=== PATIENT | male | born 1940 | race African-American/Black ===

== ENCOUNTER 2022-01-31 11:44 | Emergency (ER) | payer OTHER ==
[~2022-01-31] VITALS: Ht 182.9 cm; Wt 91.0 kg
[2022-01-31 12:47] LABS: INR 1.1; PROTHROMBIN TIME 11.4 sec (9.6-11.0)
[2022-01-31] MEDS ORDERED: ACETAMINOPHEN 325MG TABLET PO ONE ×2 (13:00→15:00)
[2022-01-31] MEDS ORDERED: SODIUM CHLORIDE 0.9% 500 ML IV ONE (13:00)
[2022-01-31 13:01] LABS: CHLORIDE 107 mEq/L (98-107)
[2022-01-31] MEDS ORDERED: VANCOMYCIN 1G PREMIX 200 ML IV ONE ×2 (13:30→15:00)
[2022-01-31] MEDS ORDERED: PIPERACILLIN/TAZ 3.375G PREMIX 50 ML IV ONE ×2 (13:30→15:00)
[2022-01-31 15:47] LABS: HEMATOCRIT. 34.6 % (42.0-52.0); HEMOGLOBIN. 11.9 g/dL (14.0-18.0); MEAN CORPUSCULAR HEMOGLOBIN 30.8 pg (28.0-32.0); MEAN CORPUSCULAR VOLUME 89.3 fL (80.0-94.0); MEAN PLATELET VOLUME 9.5 fl (7.4-10.4); PLATELET 94 x1000/uL (130-400); RED BLOOD CELL COUNT 3.88 mill/uL (4.7-6.1); RED CELL DISTRIBUTION WIDTH 13.5 % (11.6-14.6)
[2022-01-31 17:32] LABS: CLARITY URINE CLOUDY (CLEAR); COLOR URINE DARK YELLOW (YELLOW); KETONES URINE TRACE (NEGATIVE); LEUKOCYTE ESTERASE URINE TRACE (NEGATIVE); NITRITE URINE NEGATIVE (NEGATIVE); OCCULT BLOOD URINE NEGATIVE (NEGATIVE); PROTEIN URINE 2+ (NEGATIVE); SPECIFIC GRAVITY URINE 1.023 (1.005-1.030)
[2022-01-31 17:36] LABS: PLATELET ESTIMATE DECREASED
[2022-01-31] MEDS ORDERED: SODIUM CHLORIDE 0.9% 1,000 ML IV ONE (18:00)
[2022-01-31 21:16] VITALS: BP 115/68
== END 2022-01-31 21:15 | disposition short-term general hospital (02) ==
LOC: EDBEDREQ 11:57 → ER 12:40 → CANBEDREQ 02-01 08:08
DX: A41.9 Sepsis, unspecified organism (principal); R65.20 Severe sepsis without septic shock; I31.39 Other pericardial effusion (noninflammatory); I10 Essential (primary) hypertension; Z20.822 Contact with and (suspected) exposure to COVID-19
CPT/HCPCS: 36415; 71045; 74176; 80053; 81003; 83605; 84145; 84484; 85025; 85610; 87040; 87426; 87804; 93005; 96361; 96365; 96368; 99291; C9803; J2543; J3370; J7030; J7040; 99285

== ENCOUNTER 2023-11-06 06:05 | Emergency (ER) | payer OTHER ==
[~2023-11-06] VITALS: Ht 182.9 cm; Wt 91.0 kg
[2023-11-06 06:08] VITALS: O2SAT 94
[2023-11-06 06:30] LABS: HEMATOCRIT. 35.6 % (42.0-52.0); HEMOGLOBIN. 12.3 g/dL (14.0-18.0); MEAN CORPUSCULAR HEMOGLOBIN 31.5 pg (28.0-32.0); MEAN CORPUSCULAR HGB CONC 34.4 g/dL (31.0-37.0); MEAN CORPUSCULAR VOLUME 91.7 fL (80.0-94.0); MEAN PLATELET VOLUME 9.2 fl (7.4-10.4); PLATELET 105 x1000/uL (130-400); RED BLOOD CELL COUNT 3.89 mill/uL (4.7-6.1); RED CELL DISTRIBUTION WIDTH 13.5 % (11.6-14.6); WHITE BLOOD COUNT 3.1 x1000/uL (4.5-11.0)
[2023-11-06 06:34] LABS: DIFFERENTIAL COMMENT 1
[2023-11-06 06:45] LABS: CHLORIDE 109 mEq/L (98-107); POTASSIUM 3.8 mEq/L (3.5-5.1); SODIUM 143 mEq/L (136-145)
[2023-11-06 06:46] LABS: CALCIUM 10.1 mg/dL (8.7-10.4); CARBON DIOXIDE 24 mEq/L (21-32)
[2023-11-06 06:51] LABS: CREATININE 1.2 mg/dL (0.6-1.3); GLUCOSE 105 mg/dL (70-105); UREA NITROGEN BLOOD 22 mg/dL (9-23)
[2023-11-06 06:52] LABS: TROPONIN I HIGH SENSITIVITY 23 ng/L (3.0-53)
[2023-11-06 07:25] LABS: NUCLEATED RED BLOOD CELLS 1 /100 WBC; PLATELET ESTIMATE SLIGHTLY DECREASED
[2023-11-06] MEDS: MORPHINE SULFATE 4 MG/ML INJ (FOR IV/IM USE) IV ONE (07:51)
[2023-11-06] MEDS: ONDANSETRON HCL 4MG/2ML INJ IV ONE (07:52)
[2023-11-06] MEDS ORDERED: ONDANSETRON HCL 4MG/2ML INJ IV PRN (08:45)
[2023-11-06] MEDS ORDERED: CLONIDINE 0.1MG TABLET PO PRN (08:45)
[2023-11-06] MEDS ORDERED: DIPHENHYDRAMINE 50MG/ML VIAL IV PRN (08:45)
[2023-11-06] MEDS ORDERED: SODIUM CHLORIDE 0.9% 1,000 ML IV ONE (08:45)
[2023-11-06] MEDS ORDERED: IPRATROPIUM/ALBUTEROL 0.5-3(2.5)MG/3ML NEB HHN PRN (08:45)
[2023-11-06] MEDS ORDERED: ACETAMINOPHEN 325MG TABLET PO PRN (08:45)
[2023-11-06 09:00] VITALS: BP 102/54; PULSE 102; RESP 17
== END 2023-11-06 09:24 | disposition short-term general hospital (02) ==
LOC: ER 06:05
DX: R07.89 Other chest pain (principal); I10 Essential (primary) hypertension
CPT/HCPCS: 99285; 96374; 71045; 96375; 80048; 83880; 85025; 84484; 36415; 93005; J2405; J2270